=== PATIENT | male | born 1975 | race Caucasian/White ===

== ENCOUNTER 2018-04-22 21:50 | Emergency (ER) | payer BC, OTHER ==
[2018-04-22 21:59] VITALS: BP 124/81; PULSE 84; RESP 19; TEMP 98.1
--- NOTE | 2018-04-22 22:26 | ED ---
Extremity Problem HPI - General Chief complaint: Extremity Problem,Nontraumatic Stated complaint: left ankle/leg pain Time Seen by Provider: 04/22/18 22:02 Source: patient, RN notes reviewed, old records reviewed Mode of arrival: wheelchair Limitations: no limitations - History of Present Illness Initial comments: This Patient is a 42-year-old male who presents emergency Department due to complaint of left ankle pain and swelling. Patient reports the pain radiates towards the plantar aspect of his foot. Symptoms started when he was driving home from [place]. He was reports that he was walking in the city a lot yesterday and was wearing tight shoes that were new. Patient states that he had no specific falls or trauma to the foot. No history of blood clots denies any shortness of breath. - Related Data Home Medications Medication Instructions Recorded Confirmed Atorvastatin [Lipitor] 10 mg PO HS 04/22/18 04/22/18 Dm/Acetaminophen/Doxylamine [Vicks 15 ml PO HS 04/22/18 04/22/18 Nyquil Cold-Flu Liquid] Ibuprofen [Motrin Ib] 600 mg PO Q8HR 04/22/18 04/22/18 Phenylephrine HCl/Acetaminophn 2 cap PO DAILY 04/22/18 04/22/18 [Vicks Sinex Daytime Liquicap] Previous Rx's Medication Instructions Recorded Ibuprofen [Motrin] 600 mg PO Q8HR PRN #20 tab 04/23/18 Allergies Allergy/AdvReac Type Severity Reaction Status Date / Time No Known Allergies Allergy Verified 04/22/18 22:25 Review of Systems ROS Statement: Those systems with pertinent positive or pertinent negative responses have been documented in the HPI. ROS Other: All systems not noted in ROS Statement are negative. Past Medical History Past Medical History: Hyperlipidemia History of Any Multi-Drug Resistant Organisms: None Reported Past Surgical History: No Surgical Hx Reported Past Psychological History: No Psychological Hx Reported Smoking Status: Never smoker Past Alcohol Use History: Occasional Past Drug Use History: None Reported General Exam - General Exam Comments Initial Comments: Well-appearing 42-year-old female. No acute distress. Limitations: no limitations General appearance: alert, in no apparent distress Head exam: Present: atraumatic, normocephalic, normal inspection Eye exam: Present: normal appearance, PERRL, EOMI. Absent: scleral icterus, conjunctival injection, periorbital swelling ENT exam: Present: normal exam, mucous membranes moist Neck exam: Present: normal inspection Respiratory exam: Present: normal lung sounds bilaterally. Absent: respiratory distress, wheezes, rales, rhonchi, stridor Cardiovascular Exam: Present: regular rate, normal rhythm, normal heart sounds. Absent: systolic murmur, diastolic murmur, rubs, gallop, clicks GI/Abdominal exam: Present: soft, normal bowel sounds. Absent: distended, tenderness, guarding, rebound, rigid Extremities exam: Present: normal inspection, full ROM, normal capillary refill. Absent: tenderness, pedal edema, joint swelling, calf tenderness Left Lower Leg exam: Present: normal inspection, full ROM Ankle exam: Present: normal inspection, full ROM Foot/Toe exam: Present: normal inspection, full ROM, tenderness (over plantar first metatarsal) Gait: observed and normal Back exam: Present: normal inspection Neurological exam: Present: alert, oriented X3, CN II-XII intact Psychiatric exam: Present: normal affect, normal mood Skin exam: Present: warm, dry, intact, normal color. Absent: rash Course Vital Signs 04/22/18 21:53 Temperature 98.1 F Pulse Rate 84 Respiratory 19 Rate Blood Pressure 124/81 O2 Sat by Pulse 98 Oximetry Disposition Clinical Impression: Tarsal tunnel syndrome of left side, Foot swelling Disposition: HOME SELF-CARE Condition: Good Instructions: Metatarsalgia (DC) Additional Instructions: Patient is to rest, ice, and elevate the foot. Take anti-inflammatory medicine. Return to the emergency department if any alarming signs or symptoms occur. Prescriptions: Ibuprofen [Motrin] 600 mg PO Q8HR PRN #20 tab PRN Reason: Pain Is patient prescribed a controlled substance at d/c from ED?: No Referrals: Ismael Waters MD [Primary Care Provider] - 1-2 days Darci Barrera MD [Medical Doctor] - 1-2 days Time of Disposition: 00:55
--- NOTE | 2018-04-22 22:32 | XR ---
EXAMINATION TYPE: XR ankle complete LT DATE OF EXAM: 04/22/2018 COMPARISON: NONE HISTORY: Left foot pain and swelling TECHNIQUE: 3 views FINDINGS: Ankle mortise is anatomic. I see no fracture nor dislocation. IMPRESSION: Negative left ankle exam. No fracture seen.
--- NOTE | 2018-04-22 22:33 | XR ---
EXAMINATION TYPE: XR foot complete LT DATE OF EXAM: 04/22/2018 COMPARISON: NONE HISTORY: Foot pain and swelling TECHNIQUE: 3 views FINDINGS: There is a small plantar calcaneal spur. I see no fracture nor dislocation. There are no er osions. Metatarsals are intact. IMPRESSION: Minimal calcaneal spurring. No fracture seen.
[2018-04-22] MEDS ORDERED: Acetaminophen-Codeine 300-30mg TAB PO STA (22:48)
--- NOTE | 2018-04-23 00:48 | US ---
EXAMINATION TYPE: US venous doppler duplex LE LT DATE OF EXAM: 04/22/2018 10:13 PM COMPARISON: NONE CLINICAL HISTORY: Pain. Left ankle pain. SIDE PERFORMED: Left TECHNIQUE: The lower extremity deep venous system is examined utilizing real time linear array sonog jos with graded compression, doppler sonography and color-flow sonography. VESSELS IMAGED: External Iliac Vein (EIV) Common Femoral Vein Deep Femoral Vein Greater Saphenous Vein * Femoral Vein Popliteal Vein Small Saphenous Vein * Proximal Calf Veins (* superficial vessels Left Leg: Negative for DVT No evidence of DVT left leg. IMPRESSION: Normal left leg duplex venous sonogram.
[2018-04-23] MEDS ORDERED: ACET/COD 300 MG/30 MG STARTER PACK 6 TAB BTL PO STA (01:00)
== END 2018-04-23 01:01 | disposition home or self-care (01) ==
LOC: EC 21:50
DX: G57.52 Tarsal tunnel syndrome, left lower limb (principal); M79.89 Other specified soft tissue disorders; E78.5 Hyperlipidemia, unspecified; Z79.1 Long term (current) use of non-steroidal anti-inflammatories (NSAID); Z79.891 Long term (current) use of opiate analgesic; Z79.899 Other long term (current) drug therapy; Y93.01 Activity, walking, marching and hiking
CPT/HCPCS: 99284

== ENCOUNTER 2018-04-28 21:53 | Emergency (ER) | payer OTHER ==
[2018-04-28 22:03] VITALS: RESP 18; TEMP 98.2
[2018-04-28] MEDS ORDERED: DIPH,PERTUS(ACELL)TETVAC-LF 0.5 ML VIAL IM ONE (22:38)
--- NOTE | 2018-04-28 22:42 | ED ---
Wound/Laceration HPI - General Chief Complaint: Wound/Laceration Stated Complaint: foot lac Time Seen by Provider: 04/28/18 22:07 Source: patient, RN notes reviewed, old records reviewed Mode of arrival: ambulatory Limitations: no limitations - History of Present Illness Initial Comments: This Patient is a 42-year-old male, presents today acutely to the left great toe laceration. Patient reports that he dropped a coffee cup that shattered. He cut the dorsal aspect of the proximal great toe. He reports some pain with range of motion pain at the nail. He denies any other complaints at this time. He does not know his tetanus is up-to-date. Patient denies any other complaints. - Related Data Home Medications Medication Instructions Recorded Confirmed Atorvastatin [Lipitor] 10 mg PO HS 04/22/18 04/28/18 Ibuprofen [Motrin Ib] 400 mg PO Q6H PRN 04/22/18 04/28/18 Allergies Allergy/AdvReac Type Severity Reaction Status Date / Time No Known Allergies Allergy Verified 04/28/18 22:11 Review of Systems ROS Statement: Those systems with pertinent positive or pertinent negative responses have been documented in the HPI. ROS Other: All systems not noted in ROS Statement are negative. Past Medical History Past Medical History: Hyperlipidemia History of Any Multi-Drug Resistant Organisms: None Reported Past Surgical History: No Surgical Hx Reported Past Psychological History: No Psychological Hx Reported Smoking Status: Never smoker Past Alcohol Use History: Occasional Past Drug Use History: None Reported General Exam - General Exam Comments Initial Comments: 42-year-old male. Alert and oriented. No distress. Limitations: no limitations General appearance: alert, in no apparent distress Head exam: Present: atraumatic, normocephalic, normal inspection Eye exam: Present: normal appearance, PERRL, EOMI. Absent: scleral icterus, conjunctival injection, periorbital swelling ENT exam: Present: normal exam, mucous membranes moist Neck exam: Present: normal inspection. Absent: tenderness, meningismus, lymphadenopathy Respiratory exam: Present: normal lung sounds bilaterally. Absent: respiratory distress, wheezes, rales, rhonchi, stridor Cardiovascular Exam: Present: regular rate, normal rhythm, normal heart sounds. Absent: systolic murmur, diastolic murmur, rubs, gallop, clicks Extremities exam: Present: normal inspection, full ROM, normal capillary refill , other (Patient has a 2 cm laceration over the proximal left great toe.). Absent: tenderness, pedal edema, joint swelling, calf tenderness Back exam: Present: normal inspection Neurological exam: Present: alert, oriented X3, CN II-XII intact Psychiatric exam: Present: normal affect, normal mood Skin exam: Present: warm, dry, intact, normal color. Absent: rash Course Vital Signs 04/28/18 21:59 Temperature 98.2 F Pulse Rate 57 L Respiratory 18 Rate Blood Pressure 133/75 O2 Sat by Pulse 96 Oximetry Procedures - Laceration Laceration #1 Site: lower extremity (Left great toe) Size (cm): 2 Description: linear Anesthesia Technique: local infiltration Amount (mls): 3 Pre-repair: wound explored Type of Sutures: nylon Size of Sutures: 5-0 Number of Sutures: 5 Technique: simple, interrupted Patient Tolerated Procedure: well, no complications Medical Decision Making - Medical Decision Making 42-year-old male, with a left great toe laceration. He dropped a coffee cup and it shattered. He has a 2 cm laceration over the toe. Wound was thoroughly irrigated and closed. I discussed that Patient needs to keep the area wrapped and to apply antibiotic ointment. Discussed return parameters and monitoring for signs of infection. Patient was offered an x-ray, but was refusing the x- ray. Disposition Clinical Impression: Toe laceration Disposition: HOME SELF-CARE Condition: Good Instructions: Laceration (ED) Additional Instructions: Please return to the emergency room in 8-10 days to have sutures removed. Please leave wound covered for the first 24-48 hours and then leave open to air after that time. Please use clean soap and water to clean the suture area to prevent scabbing over the top of your sutures. Please watch for any signs of infection which may include but not limited to increased pain, swelling, redness , fever or chills. Please return to the emergency room if any signs of infection do occur. Please return to the emergency room for any other concerns or complications. Is patient prescribed a controlled substance at d/c from ED?: No Referrals: Ismael Waters MD [Primary Care Provider] - 1-2 days Time of Disposition: 22:44
[2018-04-28 23:31] VITALS: BP 130/68; PULSE 600
== END 2018-04-28 23:27 | disposition home or self-care (01) ==
LOC: EC 21:53
DX: S91.112A Laceration without foreign body of left great toe without damage to nail, initial encounter (principal); E78.5 Hyperlipidemia, unspecified; Z79.899 Other long term (current) drug therapy; Z23 Encounter for immunization; W22.8XXA Striking against or struck by other objects, initial encounter
CPT/HCPCS: 12001; 90471; 90715; 99283

== ENCOUNTER → 2018-06-02 | Outpatient (CLI) | payer OTHER | END | disposition home or self-care (01) | LOC: RADECHMAIN 12:34 | PROVIDERS: ATTEND Family Medicine | DX: R00.2 Palpitations (principal) | CPT/HCPCS: 93270; 93271 ==